=== PATIENT | male | born 1955 | race Caucasian/White ===

== ENCOUNTER 2018-02-25 01:38 | Inpatient (IN) | payer SELFPAY ==
--- NOTE | 2018-02-25 02:10 | Cat Scan Report ---
FINAL REPORT PROCEDURE: CT HEAD/BRAIN WO CON TECHNIQUE: Computerized tomography of the head was performed without contrast material. HISTORY: neuro deficits < 6hrs or sx present upon awakening COMPARISON: No prior studies are available for comparison. FINDINGS: Skull and scalp: Normal. Paranasal sinuses: Normal. Ventricles and subarachnoid spaces: Normal. Cerebrum: No evidence of hemorrhage, acute infarction or mass . Cerebellum and brainstem: No evidence of hemorrhage, acute infarction or mass. Vasculature: Normal. Comments: None. IMPRESSION: Normal Examination Dr. Robertson was notified by telephone at 1 a.m. [place].
[2018-02-25 02:23] LABS: Basophils # (Auto) 0.1 K/mm3 (0.0-0.1); Basophils % (Auto) 1.3 % (0.0-1.8); Eosinophils # (Auto) 0.4 K/mm3 (0.0-0.4); Eosinophils % (Auto) 4.4 % (0.0-4.3); Hematocrit 42.2 % (35.5-45.6); Hemoglobin 14.5 gm/dl (11.8-15.2); Lymphocytes # (Auto) 3.2 K/mm3 (1.2-5.4); Mean Corpuscular HGB Conc 34 % (32-34); Mean Corpuscular Hemoglobin 32 pg (28-32); Mean Corpuscular Volume 93 fl (84-94); Monocytes # (Auto) 0.9 K/mm3 (0.0-0.8); Monocytes % (Auto) 9.6 % (0.0-7.3); Platelet Count 161 K/mm3 (140-440); Red Blood Count 4.52 M/mm3 (3.65-5.03); Red Cell Distribution Width 13.1 % (13.2-15.2)
[2018-02-25 02:34] LABS: INR 0.94 (0.87-1.13)
[2018-02-25 02:35] LABS: Partial Thromboplastin Time 32.3 Sec. (24.2-36.6); Thrombin Time 16.1 Sec. (15.1-19.6)
[2018-02-25 03:16] LABS: Calcium 9.2 mg/dL (8.4-10.2); Hemolysis Index 10
--- NOTE | 2018-02-25 04:15 | Emergency Department Report ---
ED Neuro Deficit HPI - General Chief Complaint: Neuro Symptoms/Deficit Stated Complaint: STROKE SX Time Seen by Provider: 02/25/18 04:06 Source: patient Mode of arrival: Ambulatory Limitations: No Limitations - History of Present Illness Initial Comments: Patient is a 62-year-old male who presents with right-sided weakness that occurred around 00:30 today. History is obtained by patient's son patient is Cuban-speaking. Patient states that from his head to his leg he is feeling numbness and paresthesias on his right side of his body. Patient denies this ever happening before he also states that this occurred while he was sleeping and patient's symptoms were confirmed from his sleep. There are moderate nothing makes it better and nothing makes it worse patient denies being in any pain. - Related Data Allergies/Adverse Reactions: Allergies Allergy/AdvReac Type Severity Reaction Status Date / Time No Known Allergies Allergy Unverified 02/25/18 01:51 ED Review of Systems ROS: Stated complaint: STROKE SX Other details as noted in HPI Constitutional: denies: chills, fever Eyes: denies: eye pain, eye discharge, vision change ENT: denies: ear pain, throat pain Respiratory: denies: cough, shortness of breath, wheezing Cardiovascular: denies: chest pain, palpitations Endocrine: no symptoms reported Gastrointestinal: denies: abdominal pain, nausea, diarrhea Genitourinary: denies: urgency, dysuria Musculoskeletal: denies: back pain, joint swelling, arthralgia Skin: denies: rash, lesions Neurological: as per HPI, weakness, numbness, paresthesias, abnormal gait. denies: headache Psychiatric: denies: anxiety, depression Hematological/Lymphatic: denies: easy bleeding, easy bruising ED Neuro Physical Exam - General Limitations: No Limitations General appearance: alert, in no apparent distress Suspected Stroke: Yes - Head Head exam: Present: atraumatic, normocephalic - Eye Eye exam: Present: normal appearance - ENT ENT exam: Present: mucous membranes moist - Neck Neck exam: Present: normal inspection - Respiratory Respiratory exam: Present: normal lung sounds bilaterally. Absent: respiratory distress - Cardiovascular Cardiovascular Exam: Present: regular rate, normal rhythm. Absent: systolic murmur, diastolic murmur, rubs, gallop - GI/Abdominal GI/Abdominal exam: Present: soft, normal bowel sounds - Rectal Rectal exam: Present: deferred - Extremities Exam Extremities exam: Present: normal inspection - Back Exam Back exam: Present: normal inspection - Neurological Exam Neurological exam: Present: alert, oriented X3 - NIHSS Assessment Interval: Baseline 1a. Level of Consciousness: alert 1b. LOC Questions: answers correctly 1c. LOC Commands: performs tasks correctly 2. Best Gaze: normal 3. Visual: no visual loss 4. Facial Palsy: minor paralysis 5b. Motor Arm Right: no drift 5a. Motor Arm Left: no drift 6a. Motor Leg Left: no drift 6b. Motor Leg Right: no drift 7. Limb Ataxia: absent 8. Sensory: normal 9. Best Language: no aphasia 10. Dysarthria: normal 11. Extinction/Inattention: no abnormality Total Score: 1 Stroke Severity: Minor Stroke - Psychiatric Psychiatric exam: Present: normal affect, normal mood - Skin Skin exam: Present: warm, dry, intact, normal color. Absent: rash ED Course Vital Signs 02/25/18 02/25/18 02/25/18 01:41 01:49 02:00 Temperature 98.0 F 98 F Pulse Rate 59 L 71 Respiratory 18 18 14 Rate Blood Pressure 145/77 145/77 O2 Sat by Pulse 94 Oximetry 02/25/18 02/25/18 02/25/18 02:15 02:29 02:31 Temperature Pulse Rate 66 64 Respiratory 20 18 Rate Blood Pressure 143/79 O2 Sat by Pulse 96 99 Oximetry - Consultations Consultation #1: 02/25/18 04:11 Consulted with (tele-stroke neurologist) Patient should be admitted to the hospitalist service for MRI and stroke work-up. - Lab Data Result diagrams: 02/25/18 02:10 02/25/18 02:10 Lab Results 02/25/18 02/25/18 02/25/18 Range/Units 01:55 02:10 02:10 WBC 9.1 (4.5-11.0) K/mm3 RBC 4.52 (3.65-5.03) M/mm3 Hgb 14.5 (11.8-15.2) gm/dl Hct 42.2 (35.5-45.6) % MCV 93 (84-94) fl MCH 32 (28-32) pg MCHC 34 (32-34) % RDW 13.1 L (13.2-15.2) % Plt Count 161 (140-440) K/mm3 Lymph % (Auto) 35.0 (13.4-35.0) % [place] % (Auto) 9.6 H (0.0-7.3) % Eos % (Auto) 4.4 H (0.0-4.3) % Baso % (Auto) 1.3 (0.0-1.8) % Lymph # 3.2 (1.2-5.4) K/mm3 [place] # 0.9 H (0.0-0.8) K/mm3 Eos # 0.4 (0.0-0.4) K/mm3 Baso # 0.1 (0.0-0.1) K/mm3 Seg Neutrophils % 49.7 (40.0-70.0) % Seg Neutrophils # 4.5 (1.8-7.7) K/mm3 PT 13.0 (12.2-14.9) Sec. INR 0.94 (0.87-1.13) APTT 32.3 (24.2-36.6) Sec. Thrombin Time 16.1 (15.1-19.6) Sec. Sodium (137-145) mmol/L Potassium (3.6-5.0) mmol/L Chloride (98-107) mmol/L Carbon Dioxide (22-30) mmol/L Anion Gap mmol/L BUN (9-20) mg/dL Creatinine (0.8-1.5) mg/dL Estimated GFR ml/min BUN/Creatinine Ratio % Glucose (75-100) mg/dL POC Glucose 98 (70-105) Calcium (8.4-10.2) mg/dL Troponin T (0.00-0.029) ng/mL 02/25/18 Range/Units 02:10 WBC (4.5-11.0) K/mm3 RBC (3.65-5.03) M/mm3 Hgb (11.8-15.2) gm/dl Hct (35.5-45.6) % MCV (84-94) fl MCH (28-32) pg MCHC (32-34) % RDW (13.2-15.2) % Plt Count (140-440) K/mm3 Lymph % (Auto) (13.4-35.0) % [place] % (Auto) (0.0-7.3) % Eos % (Auto) (0.0-4.3) % Baso % (Auto) (0.0-1.8) % Lymph # (1.2-5.4) K/mm3 [place] # (0.0-0.8) K/mm3 Eos # (0.0-0.4) K/mm3 Baso # (0.0-0.1) K/mm3 Seg Neutrophils % (40.0-70.0) % Seg Neutrophils # (1.8-7.7) K/mm3 PT (12.2-14.9) Sec. INR (0.87-1.13) APTT (24.2-36.6) Sec. Thrombin Time (15.1-19.6) Sec. Sodium 139 (137-145) mmol/L Potassium 4.0 (3.6-5.0) mmol/L Chloride 103.6 (98-107) mmol/L Carbon Dioxide 24 (22-30) mmol/L Anion Gap 15 mmol/L BUN 15 (9-20) mg/dL Creatinine 0.9 (0.8-1.5) mg/dL Estimated GFR > 60 ml/min BUN/Creatinine Ratio 17 % Glucose 115 H (75-100) mg/dL POC Glucose (70-105) Calcium 9.2 (8.4-10.2) mg/dL Troponin T < 0.010 (0.00-0.029) ng/mL - EKG Data -: EKG Interpreted by Me 02/25/18 04:20 EKG shows normal sinus rhythm and no ST segment elevation or T-wave inversion - Radiology Data Radiology results: report reviewed, image reviewed CT head: Shows no acute intracranial process - Medical Decision Making Chief medical diagnosis: Ischemic stroke Differential medical diagnosis: Hemorrhagic stroke, electrolyte abnormality, hypoglycemia I will get cbc, BMP EKG CT head and telemetry stroke neurology consult. - Core Measures Measure Exclusions: not indicated - Thrombolytic Inclusion/Exclusion Thrombolytic Exclusion Criteria: Onset of Symptoms Unknown Thrombolytic Inclusion Criteria: Ischemic Stroke Onset< 3h Thrombolytic Contraindications: Rapidily Improving s/s Critical Care Time: Yes (40) Critical care time in (mins) excluding proc time.: 40 Critical care attestation.: If time is entered above; I have spent that time in minutes in the direct care of this critically ill patient, excluding procedure time. Critical care time spent evaluating the patient 20 minutes Critical care time sent reviewed patient's imaging findings and laboratory findings 10 minutes Critical care time sent with patient's family 5 minutes Critical care time sent with consultants 5 minutes. ED Disposition Clinical Impression: Ischemic stroke, Right sided weakness Disposition: OP ADMIT IP TO THIS HOSP Is pt being admited?: Yes Does the pt Need Aspirin: Yes Condition: Stable
--- NOTE | 2018-02-25 04:20 | XRay Report ---
FINAL REPORT PROCEDURE: XR CHEST 1V AP TECHNIQUE: Chest radiograph anteroposterior view. CPT 59377 HISTORY: Stroke COMPARISON: No prior studies are available for comparison. FINDINGS: Heart: Normal. Mediastinum/Vessels: Normal. Lungs/Pleural space: There is suboptimal inspiration. There are no active infiltrates. There are no effusions or pneumothoraces.. Bony thorax: No acute osseous abnormality. Life support devices: None. IMPRESSION: The heart size is normal.. There is suboptimal inspiration. There are no active infiltrates. There are no effusions or pneumothoraces..
[2018-02-25 04:23] LABS: BUN/Creatinine Ratio 17; Blood Urea Nitrogen 15 mg/dL (9-20)
[2018-02-25] MEDS ORDERED: BABY ASPIRIN PO ONE (04:31)
[2018-02-25 06:24] LABS: Creatine Kinase MB 2.4 ng/mL (0.0-4.0)
--- NOTE | 2018-02-25 07:43 | History and Physical Report ---
CHIEF COMPLAINT: Right-sided weakness. OTHER COMPLAINT: Numbness on the face and paraesthesia. 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 The patient's history was given by the son because the patient could not speak fluent Khmer. The patient denied history of chest pain. Denies history of shortness of breath. Denies history of dizziness or blurry vision, but stated that he has numbness on the right side of the body with weakness and was unable to ambulate to get to the bathroom. PAST MEDICAL HISTORY: Not well-defined. There is no past medical history of diabetes mellitus, hypertension, coronary artery disease or stroke. PAST SURGICAL HISTORY: Unremarkable. FAMILY HISTORY: There is family history of stroke in the father of the patient. There is no family history of diabetes mellitus or hypertension. SOCIAL HISTORY: The patient does not smoke cigarettes, drinks alcohol occasionally and does not use illicit. MEDICATIONS: The patient is not on any medication. ALLERGIES: There are no known drug allergies. REVIEW OF SYSTEMS: CONSTITUTIONAL: There is no fever, no chills, no diaphoresis. HEENT: There is no headache or sore throat. CARDIOVASCULAR: There is no chest pain or orthopnea. RESPIRATORY: There is no shortness of breath or cough. GASTROINTESTINAL: There is no nausea, no vomiting, no abdominal pain, diarrhea, or constipation. NEUROLOGICAL: Numbness on the right side of the body noted, weakness on the right side of the body noted. Facial drooling noted. There is no change in mental status. MUSCULOSKELETAL: There is no joint pain or swelling. DERMATOLOGICAL: There is no skin rash or itching. GENITOURINARY: There is no dysuria, hematuria or flank pain. Rest of system review is normal. PHYSICAL EXAMINATION: GENERAL: At the time of exam, the patient was found to be alert, oriented x 3 and not in acute distress. VITAL SIGNS: Shows temperature of 98 degrees Fahrenheit, pulse of 66, respirations 20, blood pressure 143/79, O2 sat of 96% on oxygen. HEENT: Showed pupils to be equal, round, reactive to light and accommodation. Extraocular motions are intact. NECK: Supple with no JVD or carotid bruit. CARDIOVASCULAR: Showed normal first and second heart sounds with no gallops or murmur. RESPIRATORY: Show good air entry on both sides of the lungs with no abnormal breath sounds. GASTROINTESTINAL: Show abdomen to be full, soft, nontender with no organomegaly or rigidity. NEUROLOGIC: Shows ____ weakness on the right side of the body compared to the left with muscle ____ 5/6 on the right and 6/6 on the ____ . There is no obvious facial drooling on exam. There is no sensory loss. MUSCULOSKELETAL: Show no joint swelling or tenderness. DERMATOLOGICAL: Show no skin rash. GENITOURINARY: Showing no costovertebral angle tenderness. PERTINENT LABORATORY AND IMAGING STUDIES: The patient has CBC done that came back unremarkable except for elevated monocyte of 9.6% and elevated eosinophilic count of 4.4% on CBC differential. Chemistry came back unremarkable. IMAGING STUDIES: The patient had a CT of the head without contrast done and the report shows no acute lesion with normal findings. Also, the patient had chest x-ray done that shows no acute cardiopulmonary lesion. DIAGNOSIS: Transient ischemic attack. PLAN: The patient will be admitted to telemetry and will have MRI of the brain without contrast done this morning. CARE OF PLAN: 1. The patient will have bilateral carotid Doppler done this morning as well as 2D echo done this morning. 2. The patient will have cardiac enzymes checked q. 6 hours x 2 more level. 3. The patient will have Neurology consult with Dr. Buck Webb this morning and also will have physical therapy as well as Speech therapy consult today, 02/25/2018. 4. The patient will be n.p.o. until he passes swallow test. 5. The patient will be seen by the speech therapist and the physical therapist this morning. 6. The patient will be on neuro checks every 4 hours and will be on daily aspirin 325 mg by mouth. The patient will also be on oxygen by nasal cannula at 2 L per minute. JOB# [id number] OCN/NTS
--- NOTE | 2018-02-25 13:55 | Cat Scan Report ---
CTA NECK: HISTORY: TIA, stroke. TECHNIQUE: Helical CT following IV contrast. Sagittal and coronal reformatted images. 3D volume rendering technique. Stenosis was calculated using NASCET criteria. The distal ICA were used a standard diameter FINDINGS: The visualized aortic arch, innominate artery and proximal bilateral subclavian arteries are widely patent with less than 20% stenosis. Within the right carotid system: No atherosclerotic disease. Less than 20% stenosis. Within the left carotid system: No atherosclerotic disease. Less than 20% stenosis. The cervical vertebral arteries are patent with less than 20% stenosis. IMPRESSION: Unremarkable CTA of the neck.
--- NOTE | 2018-02-25 13:58 | Cat Scan Report ---
CTA HEAD: HISTORY: TIA, stroke. TECHNIQUE: Helical CT images after IV contrast with 0.625mm reformations. Sagittal and coronal reformats. Rotational MIP images. 3D volume rendering technique. FINDINGS: The arterial structures of the anterior and posterior circulations are patent throughout. No evidence for stenosis, occlusion or aneurysm. Hypoplasia of the right A1 segment is noted. IMPRESSION: Unremarkable CTA head. No large vessel occlusion or stenosis is identified.
--- NOTE | 2018-02-25 14:01 | Magnetic Resonance Report ---
MRI OF THE BRAIN WITHOUT CONTRAST: HISTORY: Right sided weakness PROCEDURE: Multiplanar, multisequence MR imaging of the brain without IV contrast was performed. FINDINGS: A 2.4 x 1.3 cm area of diffusion restriction is identified near the left frontoparietal junction on diffusion image 25. This may involve the left precentral gyrus. No other areas of diffusion restriction are identified. Mild diffuse cortical volume loss is noted. No evidence for hemorrhage, mass, extra-axial fluid collection or chronic infarct. The midline structures are central. The basal cisterns are patent. Normal ventricular size. The orbital cavities and sella turcica demonstrate no abnormality. There is mild to moderate mucosal thickening throughout all paranasal sinuses. The mastoid air cells are adequately aerated. IMPRESSION: 2.4 x 1.3 cm area of subacute ischemia near the left frontoparietal junction as described. Mild volume loss.
--- NOTE | 2018-02-25 14:03 | Progress Note ---
Assessment and Plan Acute CVA - MRI showed ischemia near the left frontoparietal junction - neurology consulted - cont aspirin, statin - PT/ST eval . Brief History: Patient is a 62-year-old male who presents with right-sided weakness that occurred around 00:30 last night. Patient also c/o feeling numbness and paresthesias on his right side of his body. Radiological data: MRI brain: 2.4 x 1.3 cm area of subacute ischemia near the left frontoparietal junction with Mild volume loss. CTA head: Unremarkable CTA head. No large vessel occlusion or stenosis is a identified. CTA neck: Unremarkable CTA of the neck. Carotid doppler- pending 2decho: Pending Hospitalist Physical exam: GENERAL: well-developed and well-nourished male lying on bed appeared to be in no discomfort. HEENT: Normocephalic. Atraumatic. No conjunctival congestion or icterus. Patient has moist mucous membranes. NECK: Supple. Trachea midline. CHEST/LUNGS: Clear to auscultated bilaterally, breathing nonlabored. No wheezes crackles or rhonchi. HEART/CARDIOVASCULAR: Regular in rate and rhythm. S1 and S2 positive. ABDOMEN: Abdomen is soft, nontender. Patient has normal bowel sounds. SKIN: There is no rash. Warm and dry. NEURO: RUE weakness. Follows command. MUSCULOSKELETAL: No joint effusion or tenderness. EXTRIMITY: No edema, no cyanosis or clubbing. PSYCH: Cooperative. Subjective Date of service: 02/25/18 Interval history: Patient seen and examined. Medical records and medication list reviewed. No acute event overnight noted by the RN. Patient denies any chest pain or difficulty breathing. Patient is tolerating diet. c/o right sided facial and UE numbness and weakness Discussed plan of care at bedside with patient. Objective - Constitutional Vitals: Vital Signs - 12hr 02/25/18 02/25/18 02/25/18 02:00 02:15 02:29 Temperature Pulse Rate 71 66 64 Respiratory 14 20 Rate Blood Pressure 143/79 O2 Sat by Pulse 96 Oximetry 02/25/18 02/25/18 02/25/18 02:30 02:31 02:45 Temperature Pulse Rate 59 L 60 Respiratory 16 18 13 Rate Blood Pressure 141/78 141/78 O2 Sat by Pulse 96 99 97 Oximetry 02/25/18 02/25/18 02/25/18 03:00 03:15 03:30 Temperature Pulse Rate 60 60 58 L Respiratory 17 13 15 Rate Blood Pressure 142/79 142/79 130/71 O2 Sat by Pulse 95 96 94 Oximetry 02/25/18 02/25/18 02/25/18 03:45 04:00 04:15 Temperature Pulse Rate 58 L Respiratory 13 14 15 Rate Blood Pressure 130/71 129/70 129/70 O2 Sat by Pulse 95 96 94 Oximetry 02/25/18 02/25/18 02/25/18 04:30 04:45 05:00 Temperature Pulse Rate 65 57 L Respiratory 16 17 8 L Rate Blood Pressure 129/70 129/70 121/67 O2 Sat by Pulse 95 96 96 Oximetry 02/25/18 02/25/18 02/25/18 05:15 05:30 05:45 Temperature Pulse Rate 57 L 53 L 61 Respiratory 14 15 14 Rate Blood Pressure 121/67 133/73 133/73 O2 Sat by Pulse 93 95 98 Oximetry 02/25/18 02/25/18 02/25/18 06:00 06:21 08:06 Temperature 98.1 F Pulse Rate 58 L 54 L 58 L Respiratory 12 18 Rate Blood Pressure 136/81 125/67 O2 Sat by Pulse 96 92 Oximetry 02/25/18 02/25/18 08:09 13:55 Temperature Pulse Rate 50 L Respiratory Rate Blood Pressure O2 Sat by Pulse 96 Oximetry - Labs CBC & Chem 7: 02/25/18 02:10 02/25/18 02:10 Labs: Abnormal lab results 02/25/18 02/25/18 Range/Units 02:10 02:10 RDW 13.1 L (13.2-15.2) % [place] % (Auto) 9.6 H (0.0-7.3) % Eos % (Auto) 4.4 H (0.0-4.3) % [place] # 0.9 H (0.0-0.8) K/mm3 Glucose 115 H (75-100) mg/dL
[2018-02-25 14:34] LABS: Creatine Kinase MB 2.4 ng/mL (0.0-4.0)
--- NOTE | 2018-02-25 16:08 | Consultation ---
History of Present Illness Consult date: 02/25/18 Requesting physician: DOE PATEL Reason for Consult: right side weakness and numbness Chief complaint: right side weakness and numbness History of present illness: This 62-year-old right-handed male awoke at midnight and then noticed while trying to get to the bathroom that the right side of his face was numb and that his right arm and leg were weak and numb. He still has some numbness particularly in the right side of his face and little bit of weakness described as a delay of giving a command to his right side and the command being obeyed. He took naproxen at the onset of symptoms but not aspirin and has not been on aspirin or any other medication or supplements at home. CT scan showed mild cerebellar and cerebral atrophy. MRI shows acute left posterior frontal embolic appearing stroke with ADC dropout and slightly positive FLAIR but no other lacunes. There is slightly positive signal on GRE suggesting to me a small clot in that area. CT angios of head and neck are normal. Past History Past Medical History: denies: diabetes, hypertension Past Surgical History: cataract removal (right side only) Social history: , other (works in construction primarily with iron and concrete, may lift up to 50 pounds but on average lives 25 pounds at a time. Went to school only 3 years in [place].). denies: smoking (quit smoking 14 years ago, no chewing of tobacco or use of snuff), alcohol abuse (one beer per week except at a rare alliance party such as 2 weeks ago where he also had some tequila) , prescription drug abuse, IV drug use (never illicit drugs) Family history: diabetes (2 sisters), stroke (father of stroke 20 years ago. Without any hemorrhage. His son had hemorrhage in the brain but family does not know if it was an aneurysm.), other (epilepsy in the son with the brain hemorrhage). denies: hypertension Medications and Allergies Allergies Allergy/AdvReac Type Severity Reaction Status Date / Time No Known Allergies Allergy Verified 02/25/18 05:28 Home Medications Medication Instructions Recorded Confirmed Last Taken Type No Known Home Medications [No 02/25/18 02/25/18 Unknown History Reported Home Medications] Active Meds: Active Medications Aspirin (Aspirin) 325 mg PO QDAY CAMILO Pravastatin Sodium (Pravachol) 20 mg PO HS CAMILO Review of Systems All systems: negative (no headaches or dizziness including the current episode, loud snoring sometimes but no pauses have been noted, no napping or dozing off, sleepy driving only after driving for over 5 hours. Some short-term memory and remote memory difficulties since childhood and possibly ADHD. Gets angry easily all his life) Physical Examination - Vital Signs Vital Signs: Vital Signs Temp Resp BP 98.0 F 18 145/77 02/25/18 01:41 02/25/18 01:41 02/25/18 01:41 - Physical Exam Narrative exam: General Appearance: well developed well nourished (per BMI) mid 60s male in NAD, seen with his , 2 daughters and a son, with translation primarily by son and 1 daughter. HEENT: atraumatic, normocephalic; no bruits, 2+ [place] without soreness or induration or enlargement, sclerae nonicteric. Oropharynx pink and moist. Neck: supple, no bruits. Heart: no murmur or extra sounds. Extremities: no clubbing, cyanosis or edema. 2+ dorsalis pedis pulses bilaterally. Neurologic Exam: Mental Status: Awake, alert, oriented X 3, speech is clear, names pen and tip of pen, and abstracts well. Names President but not Ux Interaction Designer, serial 7's with several errors but gets 5+7 = 12, no right-left confusion, gets 2 of 3 objects at 3 minutes, spells WORLD forwards in Latvian but cannot do it backwards perhaps due to educational level. Cranial Nerves: rosa full, no papilledema, SVPs present, PERRLA, EOMs full without nystagmus or diplopia, facial sensation decreased to pinprick in right V2 and light touch decreased in right V1 and V2, minimal right facial weakness, Espinoza is midline, palate rises symmetrically to phonation and gags are positive , shoulder shrug is 5 X 2, tongue protrudes midline. Cerebellar: finger to nose slightly ataxic on the right, heel to wade is intact bilaterally. Sensory: decreased to light touch in right arm and slightly in right leg, pinprick and vibrations are intact. Double simultaneous stimulation is intact. Motor Exam Upper Extremities: Mild right static drift and pronation, Pedro slower on the right, programmer developer are 5 X 2, tone is normal. No atrophy or fasciculations are noted visually. Motor Exam Lower Extremities: no leg lag, quadriceps and anterior tibials and gastrocnemius are 5 X 2. Pedro slow bilaterally, tone is normal. No atrophy or fasciculations are noted visually. Reflexes: Palmomental is slightly positive on the left, snout is negative, jaw jerk is slightly positive. Triceps, biceps and brachioradialis are 2 bilaterally. Aubree's is negative bilaterally. Knee jerks and ankle jerks are 2+ bilaterally without clonus. Toes are downgoing bilaterally to Babinski testing. - Assessment Assessment Interval: Baseline - Level of Consciousness 1a. Level of Consciousness: alert - LOC Questions 1b. LOC Questions: answers correctly - LOC Command 1c. LOC Commands: performs tasks correctly - Best Gaze 2. Best Gaze: normal - Visual 3. Visual: no visual loss - Facial Palsy 4. Facial Palsy: minor paralysis - Motor Arm 5b. Motor Arm Right: no drift - Motor Leg 6a. Motor Leg Left: no drift - Limb Ataxia 7. Limb Ataxia: absent - Sensory 8. Sensory: normal - Best Language 9. Best Language: no aphasia - Dysarthria 10. Dysarthria: normal - Extinction and Inattention 11. Extinction/Inattention: no abnormality Results - Laboratory Findings CBC and BMP: 02/25/18 02:10 02/25/18 02:10 Abnormal Lab Findings: Abnormal Labs 02/25/18 02/25/18 02:10 02:10 RDW 13.1 L Cooke % (Auto) 9.6 H Eos % (Auto) 4.4 H Cooke # 0.9 H Glucose 115 H Assessment and Plan Impression: 1. Embolic left MCA stroke 2. Memory loss Plan: 1. Will order A1c and homocysteine for morning. Will order additional stroke labs including antibodies etc if lipids in am are normal. 2. Started pravastatin 20 mg qd. 3. Aspirin already ordered. 4. I told him and his family that after discharge if he has recurrent symptoms he should be brought to emergency room [facility] in case he might then be a candidate for TPA. I explained ideally this should be done within 3 hours of onset of symptoms but can be given even up to 4.5 hours after onset of symptoms. I also said that sometimes catheter extraction of clot can be done up to 6 hours from onset of symptoms. 5. Echo with bubble is pending. 6. Home or outpatient physical therapy apparently has been recommended by the physical therapist. She did not suggest a need for any use of a cane or walker. 7. I would suggest he not lift more than 10 pounds for the first month and then can return to full duty. 50 minutes spent including review of MRI images with him and his family showing stroke and explaining the purpose of the echo and possible need for additional stroke labs depending on fasting lipid results tomorrow. Thank you for an interesting consultation on this pleasant mid 60s male. He can be discharged in the morning if stable after blood draw. May need to give him additional orders to get special stroke labs drawn later as an outpatient if fasting lipids tomorrow are normal. Signing off, call for any questions
[2018-02-25] MEDS ORDERED: PRAVACHOL PO SCH (22:00)
[2018-02-26 06:47] LABS: Chol/HDL Ratio 6.38 %
[2018-02-26 07:37] VITALS: BP 109/68
[2018-02-26] MEDS ORDERED: ASPIRIN PO SCH (10:00)
[2018-02-26] MEDS ORDERED: PRAVACHOL PO SCH ×2 (10:29→22:00)
--- NOTE | 2018-02-26 14:16 | Discharge Summary ---
Providers - Providers Date of Admission: 02/25/18 05:05 Date of discharge: 02/26/18 Attending physician: DOE PATEL 02/25/18 05:09 Physical Therapy Evaluation and Treat [CONS] Routine Comment: Reason For Exam: RIGHT SIDED WEAKNESS Speech Therapy Evaluation and Treat [CONS] Routine Reason For Exam: TIA 02/25/18 05:10 Consult to Physician [CONS] Routine Comment: Consulting Provider: KATEY ULLOA Physician Instructions: Reason For Exam: RIGHT SIEDED WEAKNESS,PARASTHESIA Primary care physician: WICKER MOLDED CANDLES Hospitalization Condition: Stable Hospital course: Brief History: Patient is a 62-year-old male who presents with right-sided weakness that occurred around 00:30 last night. Patient also c/o feeling numbness and paresthesias on his right side of his body. Discharge diagnosis: Acute CVA - MRI showed ischemia near the left frontoparietal junction - neurology consulted - cont aspirin, statin - PT/ST eval Radiological data: MRI brain: 2.4 x 1.3 cm area of subacute ischemia near the left frontoparietal junction with Mild volume loss. CTA head: Unremarkable CTA head. No large vessel occlusion or stenosis is a identified. CTA neck: Unremarkable CTA of the neck. Carotid doppler- < 50% stenosis b/l 2decho: Pending Hospitalist Physical exam: GENERAL: well-developed and well-nourished male lying on bed appeared to be in no discomfort. HEENT: Normocephalic. Atraumatic. No conjunctival congestion or icterus. Patient has moist mucous membranes. NECK: Supple. Trachea midline. CHEST/LUNGS: Clear to auscultated bilaterally, breathing nonlabored. No wheezes crackles or rhonchi. HEART/CARDIOVASCULAR: Regular in rate and rhythm. S1 and S2 positive. ABDOMEN: Abdomen is soft, nontender. Patient has normal bowel sounds. SKIN: There is no rash. Warm and dry. NEURO: RUE weakness. Follows command. MUSCULOSKELETAL: No joint effusion or tenderness. EXTRIMITY: No edema, no cyanosis or clubbing. PSYCH: Cooperative. Disposition: [id number] HOME UNDER HOME HLTH Time spent for discharge: 32 minutes Core Measure Documentation - Palliative Care Palliative Care/ Comfort Measures: Not Applicable - Core Measures Any of the following diagnoses?: stroke - Stroke Discharge Requirements Statin for LDL = or >70 mg/dl on DC: Yes Anticoag for atrial fib/atrial flutter: Not Applicable Antithrombotic for ischemic stroke: Yes Exam - Constitutional Vitals: Temp Pulse Resp BP Pulse Ox 98.0 F 52 L 0 L 109/68 94 02/26/18 05:20 02/26/18 05:22 02/26/18 05:22 02/26/18 05:22 02/26/18 05:22 Plan Activity: advance as tolerated Weight Bearing Status: Weight Bear as Tolerated Diet: low fat, low salt Durable Medical Equipment Needed Upon Discharge: Cane Follow up with: PRIMARY CARE, [Primary Care Provider] - 7 Days Prescriptions: Aspirin EC [Aspirin Enteric Coated TAB] 81 mg PO QDAY #30 tablet. Pravastatin [Pravachol] 40 mg PO HS #30 tablet
[2018-02-26] MEDS ORDERED: LOVENOX SUB-Q SCH (22:00)
== END 2018-02-26 20:23 | disposition home or self-care (01) | DRG 65 ==
LOC: ED 01:38 → 4A 05:05
PROVIDERS: ADMIT Internal Medicine; ATTEND Internal Medicine
DX: I63.9 Cerebral infarction, unspecified (principal); G81.91 Hemiplegia, unspecified affecting right dominant side; Z98.41 Cataract extraction status, right eye; Z83.3 Family history of diabetes mellitus; Z82.3 Family history of stroke; Z79.82 Long term (current) use of aspirin
CPT/HCPCS: 36415; 70450; 70496; 70498; 70551; 71045; 80048; 80061; 82550; 82553; 82962; 83036; 83516; 84484; 85025; 85610; 85670; 85730; 93005; 93010; 93306; 93880; 94760; A9270-GY; Q9967